=== PATIENT | female | born 1960 | race Caucasian/White ===

== ENCOUNTER → 2016-06-07 | Outpatient (CLI) | payer OTHER ==
--- NOTE | 2016-06-08 06:05 | PAP/PSG TECHNICIAN REPORT ---
[facility] Clinical Services Director Polysomnogram Report Study name: None Report date: 06/08/2016 Study date: 06/07/2016 Referring Physician: Douglas Garber M.D. Name: AVINASH JOSUE Interpreting Physician: Leila Garber M.D. Date of : 1960 Clinical Services Director: LATA Salazar. Sex: Female Age: 56 StudyType: PSG Weight: 123 lbs Height: 56 years, Height 5' 2" Neck Circum: 12inches BMI: 22.49 Medications: Augmentin 875-125mg, Ventolin HFA 108mcg/act, Zocor 20mg, Topiramate 50mg, Loratadine 10mg, Bentyl 20mg, Dulera 200-5mcg/act, Boniva 150mg, Spiriva 18mcg/act Patient History Study started on room air with no ETCO2 monitoring in room #8. A full seizure montage is being used. She complains of snoring and EDS. She has trouble concentrating and is forgetful. She has a history of epilepsy but has not had a seizure [id number]. Her ESS=7/24. Neck circ=12inches. Parameters Monitored NPSG: E1-M2, E2-M1, Fp1-M2, Fp2-M1, F3-M2, F4-M2, F4-M1, C3-M2, C4-M2, C4-M1, O1-M2, O2-M2, O2-M1, T3-M2, T4-M1, P3-M2, P4-M1, CHIN1, CHIN2, HR, EKG, Legs, PFLOW, SNOR, FLOW, CFLOW, Tidal Volume, THOR, ABDO, SpO2, PLTH, CPRESS, ETCO2 Wave, ETCO2, pH Sleep Architecture Sleep Stages Time at Lights Off 9:11:10 PM STAGES Time (min.) TST (%) Time at Lights On 5:23:40 AM Wake 84.5 -- Total Recording Time (TRT) 492.50 min. N1 18.5 5 Total Sleep Period (TSP) 447.5 min. N2 244.5 60 Total Sleep Time (TST) 408.0min. N3 87.5 21 Awake Time 84.5 min. REM 57.5 14 Wake after Sleep Onset 39.5 min. Sleep Efficiency (SE) 83 % Sleep Onset Latency (YARA) 45.0 min. Number of Stage 1 Shifts None Awakenings 17 Stage Changes 83 Number of REM periods 9 REM 57.5 14 REM Latency 129.5 min. NREM 350.5 86 Body Position Analysis Supine Right Left Side Prone Vertical Total Sleep Time (min.) 407.5 28.5 17.0 45.50 0.0 0.0 Total Sleep Time (%) 89% 7% 4% 11 0% N/A% Total Sleep Time REM (min.) 57.5 0.0 0.0 None 0.0 0.0 Total Sleep Time NREM (min.) 305.0 28.5 17.0 None 0.0 0.0 Intermittent Wake (min.) 45.0 26.7 12.8 None 0.0 0.0 Total Sleep Period (%) 87% None None None None None Arousals Myoclonus (PLM) * Events Count Index Events Count Index Spontaneous 18 3 Events Awake (PLMW) 81 57.5 Respiratory 7 1.0 Events Asleep w/ Arousal (PLMA) 7 1.0 PLM 7 1 Events Asleep w/o Arousal (PLMS) 55 8.1 Snoring 5 1 Total Asleep 62 9.1 Total 37 5 Total 143 17 Respiratory Analysis * CA OA MA CH H RERA Total Count 0 2 1 0 16 1 19 Index 0.0 0.3 0.1 0 2.4 0 2.9 Mean Duration 0.0 16.8 17.5 0.00 33.3 18.1 30.1 Longest Duration 0.0 21.7 17.5 0.00 17.5 18.1 62.7 Respiratory Event Summary Total Supine ~Supine Right Left Prone REM NREM Apneas Count 3 3 0 0 0 N/A 3 0 Index 0.4 0 0 0.0 0.0 N/A 3 0 Hypopneas (4% Desat) Count 16 16 0 0 0 N/A 13 3 Index 2.4 2.6 0 0.0 0.0 N/A 13.6 0.5 Apneas & All Hypopneas Count 19 19 0 0 0 N/A 16 3 Index 2.8 3 0 0 0 N/A 16.7 0.5 Respiratory Events ([employer]+All Hyp+RERA) Count 19 20 0 0 0 N/A 16 3 Index 2.9 3 0 0.0 0.0 N/A 16.7 0.7 Respiratory Related Arousal Count 7 20 0 0 0 N/A 4 3 Index 1.0 1 0 0 0 N/A 4 1 Snoring Analysis Supine Right Left Prone REM NREM Total Snore duration 26.9 min Snores count 1,071 12 27 N/A 111 999 1,110 Snore mean duration 1.5 Sec Snores index 177 25 95 N/A 115.8 171.0 163.2 TST with snoring (%) 6.6% Desaturation Event Summary: Minimum %SpO2 Event Count Mean/Min/Max Duration(sec.) Desaturation Index % Time In Bed > 90 11 40.4 / 12.0 / 50.3 15.7 8.6 86 - 90 10 29.5 / 11.3 / 55.3 1.4 86.1 81 - 85 1 20.0 / 20.0 / 20.0 2.3 5.3 76 - 80 0 N/A 0.0 0.0 71 - 75 0 N/A 0.0 0.0 66 - 70 0 N/A 0.0 0.0 61 - 65 0 N/A 0.0 0.0 56 - 60 0 N/A 0.0 0.0 51 - 55 0 N/A 0.0 0.0 < 50 0 N/A 0.0 0.0 Total REM NREM Awake <50% 0.0 min. 0.0 min. 0.0 min. 0.0 min. 51 - 60% 0.0 min. 0.0 min. 0.0 min. 0.0 min. 61 - 70% 0.0 min. 0.0 min. 0.0 min. 0.0 min. 71 - 80% 0.0 min. 0.0 min. 0.0 min. 0.0 min. 81 - 90% 450.3 min. 45.0 min. 330.2 min. 75.2 min. 91 - 100% 42.2 min. 12.5 min. 20.3 min. 9.3 min. Average 89 89 88 88 Minimum SpO2 83 83 84 84 Desaturation Event Index 2.1 13.6 0.3 1.4 # Desat. Events below 89% 13 10 1 2 Time(%) with Saturation below 89% 44.1 4.2 30.6 9.3 Time(min.) with Saturation below 89% 217.0 20.6 150.6 45.9 Time (mins) REM (mins) NREM (mins) % of TST SpO2 Below 90% 15 13 N2 69.6 SpO2 Below 88% 6 0 0 24 Heart Rate Analysis Min (bpm) Max (bpm) Average (bpm) Awake 59 100 77 NREM 53 91 70 REM 47 84 64 Overall 47 91 69 Supplemental O2 Values Minimum O2 level: None Value Start Time End Time Clinical Services Director Comments Mrs. Josue slept in the right, left and supine positions. No cardiac arrhythmia noted. Some leg movements were noted. No bruxism noted. Snoring was noted and scored as a 4 on a scale of 1 through 5. (0=no snoring, 5=snoring loud enough to be heard through a closed door or down the beltran way) She did not use the restroom during the night. She stated that she slept about the same as when at home. No abnormal EEG activity noted. The final report will be interpreted and signed by a sleep physician. The completed physician report will then be placed in the patient medical record. Therapy (cm H2O) 0 TIB (min.) 492.5 TST (min.) 408.0 Sleep Onset (min.) 45.0 REM Onset From Sleep (min.) 129.5 Sleep Efficiency % 83 Wakefulness (%) 17 Wakefulness (min.) 84.5 NREM 1 (%) 5 NREM 1 (min.) 18.5 NREM 2 (%) 60 NREM 2 (min.) 244.5 NREM 3 (%) 21 NREM 3 (min.) 87.5 REM (%) 14 REM (min.) 57.5 # Arousals 37 Arousal Index 5 # Snore 1,110 Snore Index 163.2 AHI 2.8 AHI Supine 3 AHI Non-Supine 0 NREM AHI 0.5 REM AHI 16.7 RDI 2.9 # Obstructive Apnea 2 # Central Apnea 0 # Mixed Apnea 1 # Hypopneas 16 RERAs 1 Total Respiratory Events 20 Time Below SpO2 89% (min.) 171.2 Mean NREM SpO2 (%) 88 Mean REM SpO2 (%) 89 Mean Sleep SpO2 (%) 89 Min NREM SpO2 (%) 84 Min REM SpO2 (%) 83 Position Supine (min.) 407.5 Position Non-supine (min.) 45.5 LM Index Sleep 9.1 LM Index NREM 5.5 LM Index REM 31.3 Mean Heart Rate (bpm) 69 Min Heart Rate (bpm) 47
--- NOTE | 2016-06-12 23:12 | POLYSOMNOGRAPH REPORT ---
REFERRING PERSON: Dr. Tony Garber. WHARF ATTENDANT: Brook Martinez. Ms. Josue is a 56-year-old female sent for a baseline sleep study. She has been having trouble concentrating and has been having fatigue. She has a history of snoring. She does have a history of epilepsy, but has not had a seizure since 2006. Her [place] sleepiness scale score on the evening of the study is 7, BMI is 22.49. Because of her history of seizures, seizure montage will be formed on this patient. Following the technical and digital specifications of the [employer] [place] [employer] ([employer]ASM) a standard diagnostic polysomnogram was performed monitoring EEG, EOG, EMG (chin and leg deviations), oxygen saturation, body position, digital video, respiratory effort and airflow. The sleep Stage and event scoring was based on the AASM Manual for the Scoring of Sleep and Associated Events 2007 edition. Apneas are defined as a drop in the peak thermal sensor excursion by >90% of baseline for at least 10 seconds. Hypopneas were scored using the 4% oxygen desaturation rule (4A-[employer]) and a decrease in the nasal pressure excursions by >30% of baseline for at least 10 seconds. Respiratory effort-related arousal (RERA's) is defined as a sequence of breaths lasting at least 10 seconds characterized by increasing respiratory effort or flattening of the nasal pressure waveform leading to an arousal from sleep when the sequence of breaths does not meet criteria for an apnea or hypopnea. Apnea Hypopnea index (AHI) is defined as the number of apneas and hypopneas occurring in an hour of sleep. Respiratory disturbance index (RDI) is defined as the number of apneas, hypopneas, and RERA's occurring in an hour of sleep. Ms. Josue's total sleep period time was 447.5 minutes. Total sleep time was 408 minutes. Sleep efficiency was 83%. Latency to sleep onset was 45 minutes with wake after sleep onset of 37.5 minutes. Total non-REM sleep time was 350.5 minutes. She spent 5% of that time in N1 sleep, 60% in N2 sleep and 21% in N3 sleep. REM latency was 129.5 minutes. Total REM sleep time was 57.5 minutes or 14% of total sleep time. There were 37 cortical arousals from sleep. Eighteen of these arousals were spontaneous, 7 were due to respiratory events, 7 due to periodic limb movements of sleep, and 5 were due to snoring. There were 62 periodic limb movements. Limb movement index was 9.1. Limb movement with arousal index was 1.0. There were 2 obstructive apnea, 1 mixed apnea and no central apneas on this test. There were 16 hypopneas and 1 RERA. Apnea-hypopnea index was normal at 2.8. 1110 snoring events were recorded. Total sleep time with snoring was 6.6%. Mean saturation during sleep, however, was low at 89%. Saturations dropped to 83% with respiratory events, particularly during supine sleep. Saturations were less than 89 for 217 minutes of recorded time. This was significant nocturnal hypoxemia. Heart rates ranged from a low of 47 beats per minute to a high of 91 beats per minute during this test. No cardiac ectopy was noted. EEG activity appeared normal. IMPRESSION AND PLAN: A 56-year-old female with evidence of nocturnal hypoxemia with mild sleep disordered breathing on this test. This patient would benefit from oxygen therapy at bedtime. The cause of her hypoxemia should be determined if it is unknown. She may need pulmonary consultation and/or pulmonary function test.
== END | disposition home or self-care (01) ==
LOC: C.NEUR 20:00
PROVIDERS: ATTEND Family Medicine
DX: R06.83 Snoring (principal); G47.10 Hypersomnia, unspecified; R09.02 Hypoxemia